=== PATIENT | female | born 1970 | race Caucasian/White ===

== ENCOUNTER 2022-07-08 17:37 | Emergency (ER) | payer OTHER ==
[~2022-07-08] VITALS: Ht 170.2 cm; Wt 82.0 kg
[2022-07-08] MEDS ORDERED: CARBAMAZEPINE 200MG TABLET PO ONE (18:30)
[2022-07-08] MEDS ORDERED: LEVETIRACETAM 1000MG PREMIX 100 ML IV ONE (18:30)
[2022-07-08 18:32] LABS: BASOPHILS % 1.1 % (0.0-2.0); EOSINOPHILS % 4.7 % (0.0-5.0); HEMATOCRIT. 40.2 % (36.0-48.0); HEMOGLOBIN. 13.6 g/dL (12.0-16.0); LYMPHOCYTES % 39.1 % (20.0-50.0); MEAN CORPUSCULAR HEMOGLOBIN 28.8 pg (28.0-32.0); MEAN CORPUSCULAR VOLUME 85.4 fL (81.0-99.0); MONOCYTES % 6.2 % (2.0-8.0); NEUTROPHILS % 48.9 % (40.0-76.0); PLATELET 295 x1000/uL (130-400); RED BLOOD CELL COUNT 4.71 mill/uL (4.2-5.4); RED CELL DISTRIBUTION WIDTH 14.6 % (11.6-14.6)
[2022-07-08 18:49] VITALS: BP 138/94
[2022-07-08 18:52] LABS: HCG SCREEN NEGATIVE
[2022-07-08 19:19] LABS: CHLORIDE 104 mEq/L (98-107)
[2022-07-08] MEDS ORDERED: CARB200T MT (19:46)
== END 2022-07-08 18:44 | disposition home or self-care (01) ==
LOC: ER 17:37
DX: G40.909 Epilepsy, unspecified, not intractable, without status epilepticus (principal); Z91.14 Patient's other noncompliance with medication regimen
CPT/HCPCS: 36415; 80053; 83735; 84100; 84443; 84703; 85025; 96365; 99284; J1953